=== PATIENT | male | born 1995 | race Caucasian/White ===

== ENCOUNTER 2018-07-02 10:00 | Emergency (ER) | payer OTHER ==
[2018-07-02 10:12] VITALS: BP 114/57; PULSE 74; TEMP 98.8; BMI 17.6
[2018-07-02] MEDS ORDERED: METOCLOPRAMIDE HCL INJECTION 10 MG/2 ML VIAL IVPB ONE (10:24)
[2018-07-02] MEDS ORDERED: ONDANSETRON 4 MG/2 ML VIAL IVPUSH ONE (10:24)
[2018-07-02] MEDS ORDERED: SODIUM CHLORIDE 0.9% 1000 ML INFUS.BAG IV ONE (10:24)
[2018-07-02] MEDS ORDERED: ONDANSETRON 4 MG/2 ML VIAL ONE (10:39)
[2018-07-02] MEDS ORDERED: METOCLOPRAMIDE HCL INJECTION 10 MG/2 ML VIAL ONE (10:39)
--- NOTE | 2018-07-02 11:01 | PDOC ---
History of Present Illness - General History Source: Patient Exam Limitations: No Limitations - History of Present Illness Initial Comments: 07/02/18 11:03 The patient is a 23 year old male with no significant past medical history who presents to the ED with complaints of nausea, vomiting and diarrhea for the past few days after recent travel to [place]. The patient reports multiple episodes of nonbloody/nonbilious emesis and denies any melena or hematochezia. He reports associated abdominal cramping and reports subjective fever and chills yesterday as well as a sore throat. Denies any cough, shortness of breath , chest pain, or urinary complaints. PCP: Dr. Escobar <Kristal Perez - Last Filed: 07/02/18 11:03> <Jah Burris - Last Filed: 07/02/18 12:47> - General Chief Complaint: Vomiting/Diarrhea Stated Complaint: HEADACHE, SORE THROAT Time Seen by Provider: 07/02/18 10:23 Past History <Kristal Perez - Last Filed: 07/02/18 11:03> - Past Medical History COPD: No - Surgical History Appendectomy: Yes - Suicide/Smoking/Psychosocial Hx Smoking Status: No Smoking History: Former smoker Have you smoked in the past 12 months: No Number of Cigarettes Smoked Daily: 1 Information on smoking cessation initiated: No 'Breaking Loose' booklet given: 07/07/15 Hx Alcohol Use: No Drug/Substance Use Hx: No Substance Use Type: None Hx Substance Use Treatment: No <Jah Burris - Last Filed: 07/02/18 12:47> - Past Medical History Allergies/Adverse Reactions: Allergies Allergy/AdvReac Type Severity Reaction Status Date / Time No Known Allergies Allergy Verified 07/02/18 10:08 Home Medications: Ambulatory Orders Ondansetron [Zofran Odt -] 4 mg SL BID #14 od.tablet 07/02/18 Review of Systems - Review of Systems Able to Perform ROS?: Yes Comments:: 07/02/18 11:03 A complete review of 10 out of 10 review of systems is taken and is negative apart from what is previously mentioned below and in the HPI. All Other Systems: Reviewed and Negative <Kristal Perez - Last Filed: 07/02/18 11:03> *Physical Exam - Vital Signs Last Vital Signs Temp Pulse Resp BP Pulse Ox 98.8 F 74 18 114/57 98 07/02/18 10:10 07/02/18 10:10 07/02/18 10:10 07/02/18 10:10 07/02/18 10:10 - Physical Exam Comments: 07/02/18 11:03 Vitals: Triage Vital signs reviewed General Appearance: no acute distress, well nourished well developed, Head: Atraumatic, normocephalic Eyes: Pupils equal reactive round, extraocular movement intact Nose: Nares patent bilaterally;no nasal congestion Throat: Posterior oropharynx without erythema, mucous membranes moist, Neck: Supple;No Nuchal rigidity Cardiac: Regular rate and rhythm, no murmurs, no rubs, no gallops, Lungs: Clear to auscultation bilateral, good air movement bilaterally, Abdomen: Soft, nondistended, normal bowel sounds, nontender to palpation Extremities: Full range of motion to all extremities, no cyanosis, clubbing, or edema Skin: Warm and dry, no rashes or lesions, no petechiae Psych: normal mood, normal affect <Kristal Perez - Last Filed: 07/02/18 11:03> - Vital Signs Last Vital Signs Temp Pulse Resp BP Pulse Ox 98.8 F 74 18 114/57 98 07/02/18 10:10 07/02/18 10:10 07/02/18 10:10 07/02/18 10:10 07/02/18 10:10 <Jah Burris - Last Filed: 07/02/18 12:47> ED Treatment Course - LABORATORY CBC & Chemistry Diagram: 07/02/18 10:52 07/02/18 10:52 - Medications Given in the ED: ED Medications Discontinued Medications Generic Name Dose Route Start Last Admin Trade Name Freq PRN Reason Stop Dose Admin Diphenhydramine HCl 25 mg 07/02/18 10:24 07/02/18 10:57 Benadryl Injection - IVPB 07/02/18 10:25 25 mg ONCE ONE Administration Metoclopramide HCl 10 mg 07/02/18 10:24 07/02/18 10:57 Reglan Injection - IVPB 07/02/18 10:25 10 mg ONCE ONE Administration Ondansetron HCl 4 mg 07/02/18 10:24 07/02/18 10:57 Zofran Injection IVPUSH 07/02/18 10:25 4 mg ONCE ONE Administration Sodium Chloride 2,000 ml 07/02/18 10:24 07/02/18 10:57 Normal Saline - IV 07/02/18 10:25 2,000 ml ONCE ONE Administration <Kristal Perez - Last Filed: 07/02/18 11:03> - LABORATORY CBC & Chemistry Diagram: 07/02/18 10:52 07/02/18 10:52 - Medications Given in the ED: ED Medications Discontinued Medications Generic Name Dose Route Start Last Admin Trade Name Nita PRN Reason Stop Dose Admin Diphenhydramine HCl 25 mg 07/02/18 10:24 07/02/18 10:57 Benadryl Injection - IVPB 07/02/18 10:25 25 mg ONCE ONE Administration Metoclopramide HCl 10 mg 07/02/18 10:24 07/02/18 10:57 Reglan Injection - IVPB 07/02/18 10:25 10 mg ONCE ONE Administration Ondansetron HCl 4 mg 07/02/18 10:24 07/02/18 10:57 Zofran Injection IVPUSH 07/02/18 10:25 4 mg ONCE ONE Administration Sodium Chloride 2,000 ml 07/02/18 10:24 07/02/18 10:57 Normal Saline - IV 07/02/18 10:25 2,000 ml ONCE ONE Administration <Jah Burris - Last Filed: 07/02/18 12:47> Medical Decision Making - Medical Decision Making 07/02/18 12:45 23 years old with several day history of nausea vomiting diarrhea recent travel to [place] however no fever here in the emergency department no elevated white blood count no bloody diarrhea no abdominal discomfort Status post IV fluids and antiemetics patient feels much better now tolerating fluids History WBC/CBC is normal. His chemistry was hemolyzed. I recommended resending the chemistry to ensure no chemistry abnormailities however the patient given that he feels much better would like to return home does not want to have this rechecked At this time no indication for antibiotics. We'll discharge with Zofran probiotic and recommend close follow-up Very strict traveler's diarrhea return instructions such as fever abdominal pain bloody stools discussed with patient. Findings, the need for follow-up and strict return instructions discussed with patient. <Jah Burris - Last Filed: 07/02/18 12:47> *DC/Admit/Observation/Transfer - Attestations Scribe Attestion: 07/02/18 11:05 Documentation prepared by Kristal Perez, acting as emergency medicine medical director for Jah Burris MD. <Kristal Perez - Last Filed: 07/02/18 11:03> - Discharge Dispostion Decision to Admit order: No <Jah Burris - Last Filed: 07/02/18 12:47> Diagnosis at time of Disposition: Nausea & vomiting Qualifiers: Vomiting type: unspecified Vomiting Intractability: unspecified Qualified Code( s): R11.2 - Nausea with vomiting, unspecified Diarrhea Qualifiers: Diarrhea type: unspecified type Qualified Code(s): R19.7 - Diarrhea, unspecified - Discharge Dispostion Disposition: HOME Condition at time of disposition: Good - Referrals Referrals: Dwight Amor MD [Primary Care Provider] - - Patient Instructions Printed Discharge Instructions: DI for Nausea -- Adult, DI for Vomiting -- Adult Additional Instructions: Take Zofran as prescribed. Purchase an hkol-dok-lramali probiotic and take as directed on package. Drink plenty of fluids. From now until tomorrow morning fluids only. If no vomiting tomorrow morning to proceed to a bland diet Follow-up with your primary care provider in 2-3 days. Do not return to work until her symptoms have resolved. Return to the emergency department immediately for any severe abdominal pain fever bloody diarrhea or for any concerns. - Post Discharge Activity Forms/Work/School Notes: Back to Work
[2018-07-02 11:03] LABS: BASO % 0.3 % (0-2.0); EOS % 1.6 % (0-4.5); HEMATOCRIT 45.1 % (35.4-49); HEMOGLOBIN 15.5 GM/dL (11.7-16.9); LYMPH % 14.2 % (8-40); MCH 32.3 pg (25.7-33.7); MCHC 34.5 g/dl (32.0-35.9); MEAN CELL VOLUME 93.7 fl (80-96); MEAN PLT VOLUME 8.1 fl (7.5-11.1); MONO % 10.8 % (3.8-10.2); NEUT % 73.1 % (42.8-82.8); PLATELET COUNT 162 K/MM3 (134-434); RBC 4.81 M/mm3 (4.00-5.60); RDW 12.1 % (11.9-15.9); WHITE BLOOD COUNT 7.8 K/mm3 (4.0-10.0)
== END 2018-07-02 13:04 | disposition home or self-care (01) ==
LOC: JER 10:00
PROC: 3E033GC Introduction of Other Therapeutic Substance into Peripheral Vein, Percutaneous Approach (ICD-10-PCS; principal; 2018-07-02)
PROC: 3E033GC Introduction of Other Therapeutic Substance into Peripheral Vein, Percutaneous Approach (ICD-10-PCS; 2018-07-02)
PROC: 3E033GC Introduction of Other Therapeutic Substance into Peripheral Vein, Percutaneous Approach (ICD-10-PCS; 2018-07-02)
DX: A09 Infectious gastroenteritis and colitis, unspecified (principal)
CPT/HCPCS: 36415; 85025; 99283-25; J7030